=== PATIENT | female | born 1945 | race Caucasian/White ===

== ENCOUNTER 2020-04-01 09:59 | Inpatient (IN) ==
--- NOTE | 2019-08-21 13:01 | PAT Medication Instructions ---
Medication Instructions Date of Service August 21, 2019 Home Medications flecainide 50 mg PO Q12H glyburide 5 mg PO BID ibuprofen 200 mg PO TID PRN levothyroxine [Synthroid] 125 mcg PO QAM sitagliptin-metformin [Janumet XR] 1 tab PO QAM Continue as directed ibuprofen 200 mg PO TID PRN DO NOT take the morning of surgery glyburide 5 mg PO BID sitagliptin-metformin [Janumet XR] 1 tab PO QAM Take morning of surgery With a small sip of water, OTHERWISE NOTHING TO EAT OR DRINK AFTER MIDNIGHT: flecainide 50 mg PO Q12H levothyroxine [Synthroid] 125 mcg PO QAM Take evening before surgery flecainide 50 mg PO Q12H glyburide 5 mg PO BID Other Notes If you have any questions please call us at [phone] or [phone] or [phone] or [phone]
--- NOTE | 2020-03-05 12:12 | PAT Medication Instructions ---
Medication Instructions Date of Service March 05, 2020 Home Medications glyburide 2.5 mg PO BID levothyroxine [Synthroid] 125 mcg PO QAM sitagliptin-metformin [Janumet XR] 1 tab PO QAM amiodarone 200 mg PO BID carvedilol 12.5 mg PO BID furosemide 20 mg PO QAM rivaroxaban [Xarelto] 20 mg PO QAM sacubitril-valsartan [Entresto] 1 tab PO BID spironolactone 25 mg PO QAM ASK your prescriber and surgeon rivaroxaban [Xarelto] 20 mg PO QAM DO NOT take the morning of surgery glyburide 2.5 mg PO BID sitagliptin-metformin [Janumet XR] 1 tab PO QAM furosemide 20 mg PO QAM sacubitril-valsartan [Entresto] 1 tab PO BID spironolactone 25 mg PO QAM Take morning of surgery With a small sip of water, OTHERWISE NOTHING TO EAT OR DRINK AFTER MIDNIGHT: levothyroxine [Synthroid] 125 mcg PO QAM amiodarone 200 mg PO BID carvedilol 12.5 mg PO BID Take evening before surgery glyburide 2.5 mg PO BID amiodarone 200 mg PO BID carvedilol 12.5 mg PO BID sacubitril-valsartan [Entresto] 1 tab PO BID Other Notes If you have any questions please call us at [phone] or [phone] or [phone] or [phone]
--- NOTE | 2020-03-06 14:20 | Anesthesiology Consultation ---
Date of Service March 06, 2020 Assessment & Plan (1) Encounter for pre-operative examination: COVID Status: As of 03/06 assessment, patient denies travel to endemic area, known exposure/sick contacts, or symptoms of COVID19. Patient instructed that they and their household members must follow strict social distancing guidelines, wear a mask in public and avoid travel for 14 days prior to surgery. Preoperative COVID19 testing to be completed prior to surgery per surgeon's arrangements. Patient made aware to self-isolate as much as possible between COVID testing and surgery. Per cardiology (Dr. Vaz, [place]) 02/25/20 -- Moderate risk, LVEF 30%. Hold Xarelto x 3 days. "Has ICD L subclavian. Needs [employer] rep to turn off ICD during surgery." -- OR notified of need for [employer] rep. Chart Review Chart Review: Acceptable Risk for Surgery and Patient seen in Pre Admission Testing Teaching & Discussion Instructed NPO after midnight before surgery, except medications with 15 cc of water. Medication instructions provided according to the PAT guidelines. History Surgery Operation Date: 08/28/19 11:40 Proposed Procedures p Left Reverse Total Shoulder Arthroplasty - Santiago Hanks MD Operation Date: 04/01/20 12:20 Proposed Procedures p Left Reverse Total Shoulder Arthroplasty - Santiago Hanks MD Height/Weight Height: 5 ft 4 in Weight: 96.2 kg Allergies Allergy/AdvReac Type Severity Reaction Status Date / Time BAM Inhibitors AdvReac Intermediate Cough Verified 08/21/19 09:31 Medications Home Medications Medication Instructions Recorded Confirmed Last Taken glyburide 2.5 mg PO BID 08/21/19 02/28/20 Unknown levothyroxine [Synthroid] 125 mcg PO QAM 08/21/19 08/21/19 Unknown sitagliptin-metformin [Janumet XR] 1 tab PO QAM 08/21/19 08/21/19 Unknown amiodarone 200 mg PO BID 02/28/20 02/28/20 Unknown carvedilol 12.5 mg PO BID 02/28/20 02/28/20 Unknown furosemide 20 mg PO QAM 02/28/20 02/28/20 Unknown rivaroxaban [Xarelto] 20 mg PO QAM 02/28/20 02/28/20 Unknown sacubitril-valsartan [Entresto] 1 tab PO BID 02/28/20 02/28/20 Unknown spironolactone 25 mg PO QAM 02/28/20 02/28/20 Unknown Past Medical History Medical History (Updated 03/10/20 @ 09:32 by Mic Sequeira) Atrial fibrillation on Xarelto (follows w/ Dr. Vaz) Deep vein thrombosis ~1974 r/t control possibly. no problems since. 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 - Follows w/ Dr. Vaz (wore life vest x 5 mo prior to placement) H/O hand surgery right hand to repair deformity History of appendectomy with hysterectomy History of cardiac cath pre-op workup for shoulder surgery led to heart cath in early 2019; no stents placed but severely decreased EF found--> life vest x 5 months following cath, now s/p ICD placement 01/03/20 History of cholecystectomy History of colonoscopy History of dilatation and curettage History of total knee replacement bilateral S/P DENEEN-BSO Past Anesthesia History No Hx of Anesthesia Complications and No Family Hx of Anesthesia Complications History of PONV No Hx of PONV and No Hx of Motion Sickness Social History Smoking Status: Never smoker Do You Dip or Chew Tobacco: No Hx Alcohol Use: No Hx Substance Use: No substance use type: does not use Review of Systems Pt denies any recent chest pain, shortness of breath, palpitations, cough, fever, URI, or uncontrolled acid reflux. Physical Exam Vital Signs BP: 123/71 P: 56bpm SPO2: 94% RA T: 97.4 F R: 16 ENMT Mouth: + dentures and + edentulous Thyromental Distance: > or= 3.5 Finger Breadths Mallampati Class: II Neck normal visual inspection; neck extension not limited Respiratory normal respiratory effort Auscultation: lungs clear to auscultation bilaterally Cardiovascular Rate/Rhythm: regular rate and regular rhythm Heart Sounds: + murmur (I/) Extremities: no edema Testing Laboratory Results PT 15.4 Seconds (9.0-12.0) H 03/06/20 14:29 INR 1.5 (0.9-1.1) H 03/06/20 14:29 APTT 38.4 Seconds (21.0-31.0) H 03/06/20 14:29 Urine Color Yellow 03/06/20 14:29 Urine Appearance Clear (Clear) 03/06/20 14:29 Urine pH 7.5 (4.5-7.5) 03/06/20 14:29 Ur Specific [place] 1.015 (1.000-1.030) 03/06/20 14:29 Urine Protein Negative (Negative) 03/06/20 14:29 Urine Glucose (UA) Negative (Negative) 03/06/20 14:29 Urine Ketones Negative (Negative) 03/06/20 14:29 Urine Nitrite Negative (Negative) 03/06/20 14:29 Ur Leukocyte Esterase 1+ (Negative) H 03/06/20 14:29 Urine WBC (Auto) 1-5 /hpf (0-5) 03/06/20 14:29 Urine RBC (Auto) 0-4 /hpf (0-4) 03/06/20 14:29 U Hyaline Cast (Auto) 0 /lpf (0-5) 03/06/20 14:29 U Epithel Cells (Auto) >30 /lpf (0-5) H 03/06/20 14:29 Urine Bacteria (Auto) Negative (Negative) 03/06/20 14:29 Blood Type A Positive 03/06/20 14:29 Antibody Screen NEGATIVE 03/06/20 14:29 02/28/20 WBC: 9.7 H/H: 12.8/39.2 PLATELETS: 220 SODIUM: 141 POTASSIUM: 4.0 CHLORIDE: 101 CO2: 36 BUN: 16 CREATININE: 0.90 GLUCOSE: 151 A1C: 8.1% Electrocardiogram Date: 01/03/20 Sinus rhythm at 61 bpm with premature atrial complexes. Nonspecific intraventricular conduction block. Cannot rule out anterior infarct, age undetermined. T wave abnormality, consider inferior ischemia. *done at cardiology s/p ICD placement Chest X-Ray Date: 01/03/20 Status post pacemaker insertion with appropriate lead to position. No congestive changes, consolidating infiltrates or pleural effusions seen. Echocardiogram Date: 11/15/19 EF: 30% Severely decreased ejection fraction. There is top normal LV wall thickness. Normal right ventricular size with normal function. Mildly dilated left atrium. Normal right atrium. Trileaflet aortic valve. No aortic regurgitation. Mild to moderate mitral regurgitation. The mitral valve is thickened. There is trace tricuspid regurgitation. Normal PA pressure. Normal aorta. Physiologic pulmonary regurgitation. Cardiac Catheterization Date: 08/29/19 Mild nonocclusive coronary disease as described. Severely reduced LV systolic function with EF 20 to 25% and global hypokinesis. Low normal cardiac output/index. Mildly elevated wedge pressure, pulmonary pressure, RV end-diastolic pressure and right atrial pressure. Other Testing ICD Interrogation 01/03/20 Implant date: 01/03/20 Battery: N/A (was day of implantation) Mode: DDD
[2020-03-06 16:11] LABS: Appearance Urine Clear (Clear); Bacteria Urine Automated Negative (Negative); Bilirubin Urine Negative (Negative); Blood Urine Negative (Negative); Cast Urine Automated 0 /lpf (0-5); Color Urine Yellow; Epithelial Cell Urine Auto >30 /lpf (0-5); Glucose Urine UA Negative (Negative); Ketones Urine Negative (Negative); Leukocyte Esterase Urine 1+ (Negative); Nitrite Urine Negative (Negative); Protein Urine Negative (Negative); RBC Urine Automated 0-4 /hpf (0-4); Specific Gravity Urine 1.015 (1.000-1.030); Urobilinogen Urine Negative (Negative); pH Urine 7.5 (4.5-7.5)
[2020-03-06 16:22] LABS: INR 1.5 (0.9-1.1); Partial Thromboplastin Ratio 1.4; Partial Thromboplastin Time 38.4 Seconds (21.0-31.0); Prothrombin Time 15.4 Seconds (9.0-12.0)
--- NOTE | 2020-03-31 22:23 | History and Physical Report ---
DATE OF ADMISSION: 04/01/2020 CHIEF COMPLAINT: Left shoulder chronic weakness and pain. HISTORY OF PRESENT ILLNESS: This is a 74-year-old female patient of Dr. Hanks'jevon complaining of chronic left shoulder pain and weakness. She has failed conservative treatment and has been diagnosed with left shoulder rotator cuff arthropathy and has elected to proceed with a left reversed total shoulder arthroplasty. PAST MEDICAL HISTORY: Atrial fibrillation, Parkinson's disease, diabetes mellitus, hypothyroidism, rheumatoid arthritis, obesity. SOCIAL HISTORY: Nonsmoker and nondrinker. PAST SURGICAL HISTORY: Knee replacement and cholecystectomy. FAMILY HISTORY: Noncontributory. REVIEW OF SYSTEMS: Chronic left shoulder pain and weakness; otherwise, denies any shortness of breath, chest pain, nausea, vomiting or any other joint complaints. MEDICATIONS: 1. Janumet 50 mg/1000 one tablet daily. 2. Synthroid 125 mcg daily. 3. Lasix 20 mg daily. 4. Amiodarone 200 mg twice daily. 5. Coreg 12.5 mg twice daily. 6. Xarelto 20 mg daily. 7. Entresto 24 mg/26 mg 1 tablet twice daily. 8. Glyburide 2.5 mg 2 tablets twice daily. 9. Ibuprofen 200 mg as needed. 10. Synthroid 300 mcg daily. 11. Aldactone 25 mg 1/2 tablet daily. ALLERGIES: BAM INHIBITORS AND ADHESIVES. PHYSICAL EXAMINATION: GENERAL: Well-developed, well-nourished 74-year-old female in no acute distress. She is alert and oriented x3 and pleasant. HEENT: Normocephalic, atraumatic. Extraocular motions are intact. Pupils are equal and reactive to light. HEART: Irregular rhythm ____ rate consistent with AFib. LUNGS: Clear. ABDOMEN: Soft and nontender. Bowel sounds are present. EXTREMITIES: Left upper extremity on the left, 90 degrees of active range of motion. She has 3/5 strength. Neurologically and neurovascularly, she is intact in her left upper extremity. DIAGNOSES: Left shoulder rotator cuff arthropathy, atrial fibrillation, Parkinson's disease, diabetes, hypothyroidism, rheumatoid arthritis, obesity. PLAN: The patient was advised of her diagnosis. Indications, risks, benefits, postop course have all been reviewed. The patient wished to proceed with a left reversed total shoulder arthroplasty. Necessary consent forms, preoperative testing and clearances will be obtained.
[~2020-04-01 09:59] MED LIST: ACETAMINOPHEN 500 MG TAB PO SCH; CeleBREX 200 MG CAP PO SCH; DEXAMETHASONE SOD INJ 4 MG/ML VIAL ONE; EPINEPHrine INJ 1 MG/ML AMP ONE; FAMOTIDINE 20 MG TAB PO SCH; GABAPENTIN 300 MG CAP PO SCH; LR 15ML/HR IV SCH; METOCLOPRAMIDE HCL 10 MG TABLET PO SCH; ROPIVACAINE 0.5% 5 MG/ML 30 ML VIAL ONE; ceFAZolin 2000MG 2,000 MG/15 ML SYR IV SCH
[2020-04-01] MEDS ORDERED: LARYING-O-JET KIT (LTA) ONE (13:08)
[2020-04-01] MEDS ORDERED: PROPOFOL IV EMULSION 10 MG/ML 20 ML VIAL IV ONE (13:08)
[2020-04-01] MEDS ORDERED: DEXAMETHASONE SOD INJ 4 MG/ML VIAL ONE (13:08)
[2020-04-01] MEDS ORDERED: ONDANSETRON INJ 2 MG/ML 2 ML VIAL ONE (13:08)
[2020-04-01] MEDS ORDERED: SUCCINYLCHOLINE CHLORIDE 20 MG/ML 10 ML VIAL IV ONE (13:08)
[2020-04-01] MEDS ORDERED: fentaNYL citrate 100 MCG/2 ML VIAL ONE (13:08)
[2020-04-01] MEDS ORDERED: LIDOCAINE HCL 2% 2 ML VIAL/AMP(20MG/ML) INFIL ONE (13:08)
[2020-04-01] MEDS ORDERED: MIDAZOLAM HCL 1 MG/ML 2ML VIAL ONE (13:08)
[2020-04-01] MEDS ORDERED: PHENYLEPHRINE HCL 10 MG/ML VIAL ONE (13:08)
--- NOTE | 2020-04-01 13:50 | History & Physical Bridge Note ---
Date of Service April 01, 2020 History & Physical Bridge Note I have examined the patient, reviewed the History & Physical and in the interval since the performance of the History & Physical I have noted the following changes of clinical significance: no changes noted
[2020-04-01] MEDS ORDERED: BACITRACIN INJ 50,000 UNIT VIAL ONE (14:03)
[2020-04-01] MEDS ORDERED: NALOXONE HCL 0.4 MG/1 ML VIAL/CARP IV PRN ×2 (16:07→18:18)
[2020-04-01] MEDS ORDERED: ATROPINE SULFATE 0.1 MG/ML 10ML SYR IV PRN (16:07)
[2020-04-01] MEDS ORDERED: ONDANSETRON INJ 2 MG/ML 2 ML VIAL IV PRN ×2 (16:07→18:18)
[2020-04-01] MEDS ORDERED: fentaNYL citrate 100 MCG/2 ML VIAL IV PRN (16:07)
[2020-04-01] MEDS ORDERED: ePHEDrine sulfate 50 MG/ML AMP IV PRN (16:07)
[2020-04-01] MEDS ORDERED: FLUMAZENIL 0.1 MG/1 ML 10 ML VIAL IV PRN (16:07)
[2020-04-01] MEDS ORDERED: LABETALOL HCL IV 5 MG/ML 20ML IV PRN (16:07)
[2020-04-01] MEDS ORDERED: HYDROmorphone INJ 1 MG/ML SYRINGE IV PRN (16:07)
[2020-04-01] MEDS ORDERED: PROMETHAZINE HCL 12.5 MG in SODIUM CHLORIDE 0.9% 50 ML IV PRN (16:07)
--- NOTE | 2020-04-01 16:37 | Post Operative Brief Note ---
Immediate Post Op Note v1 Date of Surgery April 01, 2020 Pre & Post Diagnosis Operation Date: 08/28/19 11:40 <No data on this case meets the specified criteria> Operation Date: 04/01/20 12:05 Pre-Op Diagnosis: Left Shoulder rotator cuff arthropathy irreparable rotator cuff tear Post-Op Diagnosis: Left Shoulder rotator cuff arthropathy irreparable rotator cuff tear biceps rupture with scarring in bicipital groove I identified the patient and participated in the time-out.: Yes Procedure Operation Date: 08/28/19 11:40 <No data on this case meets the specified criteria> Operation Date: 04/01/20 12:05 Actual Procedures p Left Reverse Total Shoulder Arthroplasty, biceps tenodesis- Santiago Hanks MD Surgeon Santiago Hanks MD Supervisor Sewing Department [facility] Estimated Blood Loss 100 Findings Consistent with Post-Op Diagnosis Specimens Humeral head Drains Hemovac Drain Anesthesia Type General Regional Complications none Disposition Accompanied Patient To Recovery: No Overlapping Procedure I was immediately available: during the entire case.
--- NOTE | 2020-04-01 16:51 | Operative Report ---
Post Operative Report Pre & Post Diagnosis Operation Date: 08/28/19 11:40 <No data on this case meets the specified criteria> Operation Date: 04/01/20 12:05 Pre-Op Diagnosis: Left Shoulder rotator cuff arthropathy irreparable rotator cuff tear Post-Op Diagnosis: Left Shoulder rotator cuff arthropathy irreparable rotator cuff tear biceps rupture scarring in bicipital groove I identified the patient and participated in the time-out.: Yes Procedure Operation Date: 08/28/19 11:40 <No data on this case meets the specified criteria> Operation Date: 04/01/20 12:05 Actual Procedures p Left Reverse Total Shoulder Arthroplasty biceps tenodesis (Left) - Santiago Hanks MD Surgeon Santiago Hanks MD Power Equipment Mechanics Instructor [facility] Estimated Blood Loss 100 Findings Consistent with Post-Op Diagnosis Specimens Humeral head Drains 2 Hemovac Anesthesia Type General Regional Complications none Disposition Accompanied Patient To Recovery: No Disposition: Recovery Room Indications 72-year-old female with failed conservative management with guarded chronic left shoulder pain. X-rays and MRI demonstrates she has proximal migration of the humerus narrowed acromial interval mild to moderate AC joint osteoarthritis. There is inferior acromial spur causing subacromial impingement. MRI demonstrates large retracted rotator cuff tear with atrophy. Description of Procedure The patient was taken to the operating room and anesthetized under regional block and general anesthetic. The patient was positioned on the operating table in a 30 beachchair position with a towel roll under the medial border of the left scapula. The arm was draped free to be able to manipulate the shoulder as needed. The left upper extremity was prepped and draped in usual sterile fashion. Exam demonstrated crepitation with range of motion 70 degrees abduction, 30 degrees external rotation, 120 degrees forward elevation, moderate obesity of the the arm.. An anterior deltopectoral approach was performed. A longitudinal incision was made in the deltopectoral interval. The skin was incised sharply. Subcutaneous flaps were elevated off the fascia. The cephalic vein was dissected out and retracted lateral with the deltoid. The clavipectoral fascia was divided at the lateral margin of the conjoined tendon and extended up to the CA ligament. The following findings were noted patient large rotator cuff tear involving the entire supraspinatus and the majority the infraspinatus with some small amount of posterior infraspinatus and all of the teres minor intact. There is some scarred bursal tissue overlying the rotator cuff tear. The scarred bursal tissue was all excised.. The upper centimeter of the pectoralis was released for inferior exposure. The biceps tendon findings demonstrated that biceps was scarred down behind the bicipital groove there were some bicipital groove spurs surrounding it. The intra-articular portion of biceps had previously deteriorated or ruptured.. the biceps tendon was tenodesed in a lower position to to the pectoralis tendon with #2 FiberWire. The proximal biceps was resected as well as the bicipital groove bone spurs. The subscapularis tendon was taken down off the lesser tuberosity using a subperiosteal dissection. A #1 Vicryl traction suture was placed into the free end of the subscapularis tendon and capsule. The subscapular muscle fibers were split longitudinally at the level of the circumflex vessels. The c ircumflex vessels were identified and tied off with silk ties and divided laterally. A Kitner elevator was used to free up the inferior fibers of the subscapularis off of the capsule. The axillary nerve was identified with a tug test and protected with a blunt Juan José retractor between the nerve and the capsule. The subscapularis tendon was then taken down off of the lesser tuberosity subperiosteally and subperiosteal dissection was performed along the neck of the humerus as the arm is gradually externally rotated exposing the humeral head. The humeral head findings demonstrated mild to moderate osteoarthritic changes no significant osteophytes inferiorly but some laterally at the subscap tendon area. A [place] elevator was used to assist in releasing the capsule of the neck of the humerus. The capsule was divided with Reilly scissors down to the glenoid released off the anterior glenoid and the rotator interval was released to meet the capsular release and a 360 release of the subscapularis was accomplished. A Fukuda retractor was placed into the joint retracting the humeral head posterior. Glenoid findings demonstrated mild arthritic changes intact articular cartilage no deformity. The labrum was resected. The irreparable rotator cuff tear remnants were resected. An anterior-inferior and posterior inferior capsular release were performed with electrocautery and a [place] elevator on bone with the axillary nerve protected inferiorly by the retractor. Attention was then taken to the humeral preparation. The cutting guide was placed into the humeral head. It was posi tioned at 20 of retroversion. Oscillating saw was used to resect the humeral head giving the cut above the level of the posterior rotator cuff insertion site. The humerus was then prepared for the stem. I used the ascend flex stem from [employer]. The sizing broaches were used followed by trial broaches up to a size 5B long which had the appropriate fit and fill. The appropriate sized cut protector was placed. The humerus was then retracted posterior to the glenoid. The glenoid was sized for a 25 mm baseplate. The articular cartilage was curetted down so we can get the true position of the bony glenoid.. The guide for the baseplate was positioned in a 10 inferior tilt and the central drill hole was made. The reamer for the 25 mm aequalis baseplate was used. The central drill was widened for the peg. The 25 mm hydroxyapatite-coated Tornier aequalis baseplate was impacted into position. The base plate was transfixed with superior and inferior locking screws and anterior and posterior compression screws with stable fixation. The anterior screw was in some osteoporotic bone and had only fair fixation remainder of the screws had excellent fixation. The fan reamer was used for the 25 millimeter glenoid sphere. After irrigation the 25 mm standard glenoid sphere was impacted onto the baseplate and the screw was tightened. Attention was taken back to the humerus. The cut protector was removed and the high offset +0 humeral tray trial was assembled to the trial stem rotated appropriately to get bony coverage and then screwed in position. A trial reduction was performed. A +6,36 mm trial insert demonstrated good stability and no shuck. The trials were removed. 3 drill holes are made into the harder bone in the bicipital groove area and 3 #5 FiberWire sutures were placed transosseously. The canal was irrigated with antibiotic solution with bacitracin. The final component was assembled. The final component was 5B long PTC ascend flex stem assembled to the plus or high offset tray and 36+6 reversed polyethylene insert.. This was then impacted into the humerus with a tight press-fit. It was reduced to the glenoid sphere. Stability was verified. Sub scapularis was repaired with the #5 FiberWire sutures using Carlos-Tony suture technique. Lateral row soft tissue repair was performed with #2 FiberWire [id number] sutures. The pectoralis was repaired with #2 FiberWire [id number] sutures reinforcing the biceps tendon tenodesis. The arm was taken through a range of motion which demonstrated 140 degrees forward elevation, 45 degrees external rotation, 90 degrees abduction. The implant was stable through the range of motion tested. The wound was copiously irrigated. 2 Hemovac drains were placed. The deltopectoral interval was closed with [id number] #1 Vicryl sutures. The subcutaneous tissues were closed with 2- 0 Vicryl sutures. The skin was closed with antoinette. Sterile dressings were applied and a shoulder immobilizer. [facility] my physician medical assistant dermatology assisted in the procedure to the entire procedure including patient positioning arm positioning prepping and draping soft tissue retraction instrument managem ent suture management and performed the subcutaneous and skin closure and will participate in the postoperative care of the patient. I attest to the content of the Intraoperative Record and any orders documented therein. Any exceptions are noted below.
--- NOTE | 2020-04-01 17:42 | Anesthesiology Progress Note ---
Date of Service April 01, 2020 Anesthesia Post Procedure Vital Signs Vital Signs: Temp Pulse Pulse Resp BP Pulse Ox 04/01/20 17:30 36.3 C L 73 24 135/68 94 04/01/20 17:20 82 24 158/80 H 93 04/01/20 17:10 79 24 155/61 H 96 04/01/20 17:00 88 14 125/89 93 04/01/20 16:50 77 16 157/79 H 94 04/01/20 16:47 36.1 C L 81 17 158/84 H 93 04/01/20 10:31 36.6 C 66 20 179/94 H 95 Pain Intensity Left Shoulder: Pain Intensity: 0 Transfer of Care Handoff Completed per policy Notes Mental Status: alert / awake / arousable Patient Amnestic to Procedure: Yes Nausea / Vomiting: adequately controlled Pain: adequately controlled Airway Patency, RR, SpO2: stable & adequate BP & HR: stable & adequate Hydration State: stable & adequate Anesthetic Complications: no major complications apparent
--- NOTE | 2020-04-01 17:50 | XRay Report ---
XR shoulder LT min 2V routine CLINICAL HISTORY: Post shoulder surgery COMPARISON: None FINDINGS: Alignment of the left shoulder arthroplasty is anatomic. There is no periprosthetic fractu re or unexpected radiopaque foreign body. There are drains and skin antoinette. Left subclavian pacer/AI CD is in place. IMPRESSION: Expected findings following reverse total left shoulder arthroplasty. ACT 112: Negative or not required by law. Electronically signed by: Magan Thrasher M.D. 04/01/2020 5:49 PM
[2020-04-01] MEDS ORDERED: diphenhydrAMINE Capsule 25 MG CAP PO PRN (18:18)
[2020-04-01] MEDS ORDERED: bisacodyL 10 MG SUPP PR PRN (18:18)
[2020-04-01] MEDS ORDERED: MAGNESIUM HYDROXIDE SUSP 30 ML UDC PO PRN (18:18)
[2020-04-01] MEDS ORDERED: HYDROmorphone INJ 0.5 MG/0.5 ML SYR IV PRN (18:18)
[2020-04-01] MEDS ORDERED: PHARMACY GLYCEMIC MGMT CONSULT PRN (18:43)
[2020-04-01] MEDS: SODIUM CHLORIDE 0.9% 1000ML 1,000 ML IV SCH (19:12)
[2020-04-01] MEDS ORDERED: GLUCOSE 40% GEL 15 GM TUBE PO PRN (19:15)
[2020-04-01] MEDS ORDERED: GLUCAGON FOR INJ 1 MG VIAL SQ PRN (19:15)
[2020-04-01] MEDS ORDERED: CARBOHYDRATES FOR HYPOGLYCEMIA PO PRN (19:15)
[2020-04-01] MEDS ORDERED: DEXTROSE 50% 50 ML SYRINGE IV PRN (19:15)
[2020-04-01] MEDS ORDERED: GLUCOSE 10 TABS/TUBE PO PRN (19:15)
[2020-04-01] MEDS: INSULIN ASPART 100 UNITS/ML 3 ML PEN SC SCH (20:28)
[2020-04-01] MEDS: SENNA 8.6 MG TAB PO SCH (20:38)
[2020-04-01] MEDS: DOCUSATE SODIUM 100 MG CAP PO SCH (20:39)
[2020-04-01] MEDS: carvediloL 12.5 MG TAB PO SCH (20:39)
[2020-04-01] MEDS: AMIODARONE 200 MG TAB PO SCH (20:39)
[2020-04-01] MEDS: SACUBITRIL-VALSARTAN 24-26 MG TAB PO SCH (20:40)
[2020-04-01] MEDS ORDERED: INSULIN GLARGINE SOLOSTAR 100 UNITS/ML 3 ML PEN SC ONE (21:30)
[2020-04-01] MEDS: ACETAMINOPHEN 500 MG TAB PO SCH (21:32)
[2020-04-01] MEDS: ceFAZolin 2000MG 2,000 MG/15 ML SYR IV SCH (21:35)
[2020-04-02] MEDS: INSULIN ASPART 100 UNITS/ML 3 ML PEN SC SCH ×7 (00:28→21:18)
[2020-04-02] MEDS: SODIUM CHLORIDE 0.9% 1000ML 1,000 ML IV SCH (04:56)
[2020-04-02] MEDS: LEVOTHYROXINE SODIUM 125 MCG TABLET PO SCH (05:21)
[2020-04-02] MEDS: ACETAMINOPHEN 500 MG TAB PO SCH ×3 (05:21→21:19)
[2020-04-02] MEDS: ceFAZolin 2000MG 2,000 MG/15 ML SYR IV SCH (05:26)
[2020-04-02 06:38] LABS: Hematocrit (blood only) 34.8 % (37-47); Hemoglobin 11.4 g/dL (12.0-16.0); Immature Granulocytes # (auto) 0.03 K/uL (0.00-0.02); Immature Granulocytes % (auto) 0.3 %; Lymphocytes # (auto) 1.35 K/uL (1.2-3.4); Lymphocytes % (auto) 12.6 %; Mean Corpuscular Hemoglobin 30.2 pg (25-34); Mean Corpuscular Hgb Conc 32.8 g/dL (32-36); Mean Corpuscular Volume 92.1 fL (80-100); Mean Platelet Volume 11.1 fL (7.4-10.4); Monocytes # (auto) 0.48 K/uL (0.11-0.59); Monocytes % (auto) 4.5 %; Neutrophils # (auto) 8.86 K/uL (1.4-6.5); Neutrophils % (auto) 82.6 %; Platelet Count 211 K/uL (130-400); RDW Standard Deviation 43.6 fL (36.4-46.3); Red Blood Count 3.78 M/uL (4.2-5.4); White Blood Count 10.72 K/uL (4.8-10.8)
[2020-04-02 07:17] LABS: BUN Creatinine Ratio 15.7 (10-20); Calcium 8.7 mg/dl (8.5-10.1); Creatinine Clr Calc Pharmacy 65.4 ml/min; Est GFR (African American) 76.1; Est GFR (Non-African American) 65.6; Potassium 4.8 mmol/L (3.5-5.1)
[2020-04-02 07:58] LABS: Estimated Average Glucose 189 mg/dl; Hemoglobin A1C 8.2 % (4.5-5.6)
[2020-04-02] MEDS ORDERED: PNEUMOCOCCAL Polysaccharide Vaccine 25mcg/0.5mL vial/Syr IM ONE (08:15)
[2020-04-02] MEDS: AMIODARONE 200 MG TAB PO SCH ×2 (08:48→20:43)
[2020-04-02] MEDS: carvediloL 12.5 MG TAB PO SCH ×2 (08:49→20:43)
[2020-04-02] MEDS: SACUBITRIL-VALSARTAN 24-26 MG TAB PO SCH (08:49)
[2020-04-02] MEDS: RIVAROXABAN 20 MG TAB PO SCH (08:49)
[2020-04-02] MEDS: MULTIVITAMIN TAB PO SCH (08:49)
[2020-04-02] MEDS: DOCUSATE SODIUM 100 MG CAP PO SCH ×2 (08:49→20:42)
--- NOTE | 2020-04-02 08:51 | Orthopedic Progress Note ---
Date of Service April 02, 2020 Assessment & Plan (1) Secondary osteoarthritis of left shoulder due to rotator cuff arthropathy: Stop day 1 status post left reverse TSA PT/OT protocols. Nonweightbearing on the left upper extremity. Continues to have some residual effects from her nerve block that are slowly wearing off. Watch for now. DVT prophylaxis with rivaroxaban, SCDs DC planning-minimal therapy requirements initially at this time. Patient planning to be discharged home. Admission and Anticipated Discharge Date Admission Date: April 01, 2020 Subjective Postop day 1 Patient sitting up in her chair at the bedside. She has some continued numbness in her left hand this morning. No other complaints. Pain controlled. Denies shortness of breath, chest pain, lightheadedness. Physical Exam Physical Exam: Dressings are clean, dry, and intact. Hemovac functioning and drain 50 mL's from the previous shift. Patient has good flexion-extension of her left wrist. 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 She continues with some mild numbness across the dorsum of the hand into her fingers. Capillary refill is less than 2 seconds. Results & Data ([facility]) Vital Signs (Past 12 Hours) Vital Signs Temp Pulse Pulse Resp BP Pulse Ox 04/02/20 07:00 36.4 C L 52 L 16 100/64 94 04/02/20 04:08 36.4 C L 58 L 16 96/59 L 93 04/01/20 23:54 93 04/01/20 23:40 36.3 C L 77 20 120/72 88 L 04/01/20 21:04 36.8 C 73 18 122/72 91 Laboratory Results Laboratory Results WBC 10.72 K/uL (4.8-10.8) 04/02/20 06:24 RBC 3.78 M/uL (4.2-5.4) L 04/02/20 06:24 Hgb 11.4 g/dL (12.0-16.0) L 04/02/20 06:24 Hct 34.8 % (37-47) L 04/02/20 06:24 MCV 92.1 fL (80-100) 04/02/20 06:24 MCH 30.2 pg (25-34) 04/02/20 06:24 MCHC 32.8 g/dL (32-36) 04/02/20 06:24 RDW Std Deviation 43.6 fL (36.4-46.3) 04/02/20 06:24 RDW Coeff of Duc 13.0 % (11.5-14.5) 04/02/20 06:24 Plt Count 211 K/uL (130-400) 04/02/20 06:24 MPV 11.1 fL (7.4-10.4) H 04/02/20 06:24 Immature Gran % (Auto) 0.3 % 04/02/20 06:24 Neut % (Auto) 82.6 % 04/02/20 06:24 Lymph % (Auto) 12.6 % 04/02/20 06:24 [place] % (Auto) 4.5 % 04/02/20 06:24 Eos % (Auto) 0.0 % 04/02/20 06:24 Baso % (Auto) 0.0 % 04/02/20 06:24 Neut # (Auto) 8.86 K/uL (1.4-6.5) H 04/02/20 06:24 Lymph # (Auto) 1.35 K/uL (1.2-3.4) 04/02/20 06:24 [place] # (Auto) 0.48 K/uL (0.11-0.59) 04/02/20 06:24 Eos # (Auto) 0.00 K/uL (0-0.5) 04/02/20 06:24 Baso # (Auto) 0.00 K/uL (0-0.2) 04/02/20 06:24 Immature Gran # (Auto) 0.03 K/uL (0.00-0.02) H 04/02/20 06:24 PT 15.4 Seconds (9.0-12.0) H 03/06/20 14:29 INR 1.5 (0.9-1.1) H 03/06/20 14:29 APTT 38.4 Seconds (21.0-31.0) H 03/06/20 14:29 PTT Ratio 1.4 03/06/20 14:29 Sodium 138 mmol/L (136-145) 04/02/20 06:24 Potassium 4.8 mmol/L (3.5-5.1) 04/02/20 06:24 Chloride 102 mmol/L (98-107) 04/02/20 06:24 Carbon Dioxide 29 mmol/L (21-32) 04/02/20 06:24 Anion Gap 7.0 (3-11) 04/02/20 06:24 BUN 14 mg/dl (7-18) 04/02/20 06:24 Creatinine 0.88 mg/dl (0.6-1.2) 04/02/20 06:24 Est Cr Clr Drug Dosing 65.4 ml/min 04/02/20 06:24 Est GFR ( Amer) 76.1 04/02/20 06:24 Est GFR (Non-Af Amer) 65.6 04/02/20 06:24 BUN/Creatinine Ratio 15.7 (10-20) 04/02/20 06:24 Glucose 182 mg/dl (70-99) H 04/02/20 06:24 POC Glucose 192 mg/dl (70-99) H 04/02/20 08:07 Estimat Average Glucose 189 mg/dl 04/02/20 06:24 Hemoglobin A1c 8.2 % (4.5-5.6) H 04/02/20 06:24 Calcium 8.7 mg/dl (8.5-10.1) 04/02/20 06:24 Urine Color Yellow 03/06/20 14:29 Urine Appearance Clear (Clear) 03/06/20 14:29 Urine pH 7.5 (4.5-7.5) 03/06/20 14:29 Ur Specific [place] 1.015 (1.000-1.030) 03/06/20 14:29 Urine Protein Negative (Negative) 03/06/20 14:29 Urine Glucose (UA) Negative (Negative) 03/06/20 14:29 Urine Ketones Negative (Negative) 03/06/20 14:29 Urine Blood Negative (Negative) 03/06/20 14:29 Urine Nitrite Negative (Negative) 03/06/20 14:29 Urine Bilirubin Negative (Negative) 03/06/20 14:29 Urine Urobilinogen Negative (Negative) 03/06/20 14:29 Ur Leukocyte Esterase 1+ (Negative) H 03/06/20 14:29 Urine WBC (Auto) 1-5 /hpf (0-5) 03/06/20 14:29 Urine RBC (Auto) 0-4 /hpf (0-4) 03/06/20 14:29 U Hyaline Cast (Auto) 0 /lpf (0-5) 03/06/20 14:29 U Epithel Cells (Auto) >30 /lpf (0-5) H 03/06/20 14:29 Urine Bacteria (Auto) Negative (Negative) 03/06/20 14:29 Blood Type A Positive 03/06/20 14:29 Antibody Screen NEGATIVE 03/06/20 14:29
[2020-04-02] MEDS ORDERED: SPIRONOLACTONE 25 MG TAB PO SCH (09:00)
[2020-04-02] MEDS ORDERED: FUROSEMIDE 20 MG TAB PO SCH (09:00)
[2020-04-02] MEDS ORDERED: INSULIN GLARGINE SOLOSTAR 100 UNITS/ML 3 ML PEN SC SCH (09:00)
[2020-04-02] MEDS ORDERED: SITAGLIPTIN METFORMIN PO SCH (09:00)
--- NOTE | 2020-04-02 09:06 | Pharmacy Report ---
Glycemic Control Consultation - Date of Service April 02, 2020 - Scope Scope: Glycemic Pharmacist consulted for glycemic control and to write orders per [facility] inpatient glycemic control protocol. - Objective Weight: 97.159 kg Accuchecks BSG (last 24hrs): 04/01/20 04/01/20 04/01/20 10:23 16:51 18:38 Glucose POC Glucose 213 H 209 H 243 H 04/01/20 04/01/20 04/01/20 20:53 23:39 23:42 Glucose POC Glucose 406 H* 303 H* 320 H* 04/02/20 04/02/20 04/02/20 04:06 06:24 08:07 Glucose 182 H POC Glucose 243 H 192 H Laboratory Data (last 24hrs): 04/02/20 06:24 Potassium 4.8 Carbon Dioxide 29 Anion Gap 7.0 Creatinine 0.88 Est Cr Clr Drug Dosing 65.4 HbA1c: Hemoglobin A1c 8.2 % (4.5-5.6) H 04/02/20 06:24 - Recent Pertinent Medications Outpatient Anti-diabetic Regimen: * Janumet XR 1 tab qAM, glyburide 2.5 bid * A1c = 8.2 % 04/02/20 Risk Factors for Insulin Resistance: * Recent Surgery: pod1 * Diet: t2dm - Assessment & Plan Assessment & Plan: ASSESSMENT: * Patient now POD 1 of L shoulder arthroplasty. Pharmacy consulted for glycemic management postop. Patient managed only on oral agents at home * Received total of 41 units of insulin yesterday, of which 20 were basal insulin * Fasting BSG 182 mg/dL - will continue with 10 of Lantus this AM, and have scale for HS for basal * BSGs trending up overnight - CF/CR tightened / continued same for this morning, tightened at lunch PLAN FOR INPATIENT GLYCEMIC CONTROL: * Holding outpatient oral diabetes medications * Basal insulin * Lantus 10 Qam * Lantus HS per scale 15-20 units based upon BSG value / see eMAR for more details * Bolus insulin * NovoLog per scale ACHS or Q6hrs while NPO * Goal Range: Low 110 mg/dL - High 140 mg/dL * Correction Factor: 15 mg/dL/unit * Nutritional / Prandial insulin per carb ratio of 1 unit per 4 grams CHO consumed * Please note that the plan above was derived based on current level of insulin resistance and hospital stress. These recommendations are appropriate for inpatient admission only. Plan of care upon discharge will need to be reassessed to avoid potential outpatient hypo/hyperglycemia. Thank you.
[2020-04-02] MEDS: oxyCODONE HCL IR 5 MG TAB (IMMEDIATE RELEASE) PO PRN ×2 (16:38→22:30)
--- NOTE | 2020-04-02 18:22 | Consultation ---
Date of Consultation April 02, 2020 Assessment & Plan (1) Secondary osteoarthritis of left shoulder due to rotator cuff arthropathy: s/p TSA 04/02 Pain control, dvt proph per primary Monitor for acute blood loss CBC am (2) Nonischemic dilated cardiomyopathy: Last echo 10/2019 - EF 30% Patient's blood pressure running low normal, will place entresto on hold for this evening. Will hold off on giving further fluids given low EF and lack of symptoms. Continue Coreg Will place spironolactone and lasix on hold until morning labs are back and blood pressure assessed in the morning Recheck prp am (3) Hypothyroidism: Continue synthroid (4) Essential (primary) hypertension: As above (5) Diabetes mellitus, type 2: Pharmacy glycemic consult BSG ac & HS A1c 8.2% (6) Atrial fibrillation: Continue Xeralto per primary Supervising Physician Co-Signing Physician Notes Patient seen and examined with Esme ARCE. I agree with her exam findings, review of systems, assessment and plan. I personally reviewed the lab work and imaging as well. patient doing well after surgery, no pain in left shoulder due to nerve block breathing well, no distress reviewed medications, medical history - DM: will hold oral regimen, use Lantus and Novolog, monitor for hypoglycemia - Cardiomyopathy, h/o defibrillator continue Entresto, Coreg, Lasix, spironolactone check BMP in the morning to assess renal function and electrolytes will follow up in AM, likely sign off History of Present Illness Ms. Schroeder is doing well, no complaints. No pain. at bedside Pmhx: DMII, hypothyroid, def/pacer, tremor social: lives with , retired, never smoker, no alcohol family: non contributory Attending Physician: Santiago Hanks MD Allergies Allergy/AdvReac Type Severity Reaction Status Date / Time BAM Inhibitors AdvReac Intermediate Cough Verified 04/01/20 10:24 Home Medications Home Medications Medication Instructions Recorded Confirmed Type glyburide 2.5 mg PO BID 08/21/19 04/01/20 History levothyroxine [Synthroid] 125 mcg PO QAM 08/21/19 04/01/20 History sitagliptin-metformin [Janumet XR] 1 tab PO QAM 08/21/19 04/01/20 History amiodarone 200 mg PO BID 02/28/20 04/01/20 History carvedilol 12.5 mg PO BID 02/28/20 04/01/20 History furosemide 20 mg PO QAM 02/28/20 04/01/20 History rivaroxaban [Xarelto] 20 mg PO QAM 02/28/20 04/01/20 History sacubitril-valsartan [Entresto] 1 tab PO BID 02/28/20 04/01/20 History spironolactone 25 mg PO QAM 02/28/20 04/01/20 History Patient History Medical History (Updated 04/02/20 @ 18:29 by YAZMIN Castaneda) Atrial fibrillation on Xarelto (follows w/ Dr. Vaz) Deep vein thrombosis ~1974 r/t control possibly. no problems since. Diabetes mellitus, type 2 NIDDM Essential (primary) hypertension Hypothyroidism Nonischemic dilated cardiomyopathy s/p dual chamber ICD 01/03/20 Osteoarthritis Poor historian Tremor "pre parkinson" per pt Surgical History Cardiac defibrillator in place placed 3 weeks ago -- brand? - Follows w/ Dr. Vaz (wore life vest x 5 mo prior to placement) H/O hand surgery right hand to repair deformity History of appendectomy with hysterectomy History of cardiac cath pre-op workup for shoulder surgery led to heart cath in early 2019; no stents placed but severely decreased EF found--> life vest x 5 months following cath, now s/p ICD placement 01/03/20 History of cholecystectomy History of colonoscopy History of dilatation and curettage History of total knee replacement bilateral S/P DENEEN-BSO Family History Father Family history of diabetes mellitus Daughter Family history of diabetes mellitus Other No family history of adverse response to anesthesia Social History Smoking Status: Never smoker Second Hand Exposure: Yes (hx); Do You Dip or Chew Tobacco: No; Tobacco Cessation Education Requested by Patient: No Hx Alcohol Use: No Hx Substance Use: No Preferred Language: Amharic Communication Ability: Effective Asphalt Tamper Required: No Beliefs That Will Affect Care: None marital status: Current Living Situation: Spouse Other Information That Helps Us Care for You: No Feels Safe at Home: Yes Safety Concerns: Feels Safe At This Time Review of Systems Constitutional: no fever, no sweats and no body aches Respiratory: no cough, no dyspnea and no wheezing Cardiovascular: no chest pain, no dyspnea and no palpitations Gastrointestinal: no nausea, no vomiting and no diarrhea/loose stools Genitourinary: no dysuria and no urinary hesitancy Musculoskeletal: no back pain and no joint pain Integumentary: no rash Physical Exam Physical Exam: General: no distress Eyes: normal inspection, PERLL Respiratory: chest non tender, clear to auscultation, normal breath sounds, no respiratory distress, no accessory muscle use Cardiac: regular rate and rhythm, no rub or gallop, no murmur, no edema, no jvd GI/: active bowel sounds, no abd pain or tenderness, soft, non distended Extremities: normal range of motion, normal strength, non tender, left hand warm with strong grasp Neuro/Psych: alert and oriented x 3, normal mood and affect Skin: normal color, dry Results & Data ([facility]) Vital Signs (Past 12 Hours) Vital Signs Temp Pulse Pulse Resp BP Pulse Ox 04/02/20 15:14 36.6 C 62 18 95/55 L 90 04/02/20 11:52 36.5 C 57 L 16 103/60 91 04/02/20 07:00 36.4 C L 52 L 16 100/64 94 PG Care Time/CCT Total # of Minutes Spent Total Time Spent with Patient: Total time spent is greater than 50% in coordination of care (as documented) at patient's floor/unit and/or counseling patient: Coding Level of Care Code 29122 Inpt Consult Level 4 Diagnoses Secondary osteoarthritis of left shoulder due to rotator cuff arthropathy M1 9.212 Nonischemic dilated cardiomyopathy I42.0 Hypothyroidism E03.9 Essential (primary) hypertension I10 Diabetes mellitus, type 2 E11.9 Atrial fibrillation I48.91
[2020-04-02] MEDS: SENNA 8.6 MG TAB PO SCH (20:43)
[2020-04-02] MEDS: INSULIN GLARGINE SOLOSTAR 100 UNITS/ML 3 ML PEN SC SCH (21:18)
[2020-04-03] MEDS: oxyCODONE HCL IR 5 MG TAB (IMMEDIATE RELEASE) PO PRN ×2 (02:17→09:15)
[2020-04-03 06:10] LABS: Basophils # (auto) 0.02 K/uL (0-0.2); Basophils % (auto) 0.1 %; Eosinophils # (auto) 0.08 K/uL (0-0.5); Eosinophils % (auto) 0.6 %; Hematocrit (blood only) 33.1 % (37-47); Hemoglobin 10.9 g/dL (12.0-16.0); Immature Granulocytes # (auto) 0.03 K/uL (0.00-0.02); Immature Granulocytes % (auto) 0.2 %; Lymphocytes # (auto) 3.17 K/uL (1.2-3.4); Lymphocytes % (auto) 23.1 %; Mean Corpuscular Hemoglobin 30.5 pg (25-34); Mean Corpuscular Hgb Conc 32.9 g/dL (32-36); Mean Corpuscular Volume 92.7 fL (80-100); Mean Platelet Volume 11.1 fL (7.4-10.4); Monocytes # (auto) 1.09 K/uL (0.11-0.59); Monocytes % (auto) 7.9 %; Neutrophils # (auto) 9.33 K/uL (1.4-6.5); Neutrophils % (auto) 68.1 %; Platelet Count 205 K/uL (130-400); RDW Coefficient of Variation 13.2 % (11.5-14.5); RDW Standard Deviation 45.1 fL (36.4-46.3); Red Blood Count 3.57 M/uL (4.2-5.4); White Blood Count 13.72 K/uL (4.8-10.8)
[2020-04-03] MEDS: ACETAMINOPHEN 500 MG TAB PO SCH (06:10)
[2020-04-03] MEDS: LEVOTHYROXINE SODIUM 125 MCG TABLET PO SCH (06:11)
[2020-04-03 06:37] VITALS: TEMP 97.7; O2SAT 94
[2020-04-03 06:48] LABS: BUN Creatinine Ratio 20.7 (10-20); Calcium 8.4 mg/dl (8.5-10.1); Creatinine Clr Calc Pharmacy 59.9 ml/min; Est GFR (African American) 68.5; Est GFR (Non-African American) 59.1; Potassium 3.8 mmol/L (3.5-5.1)
--- NOTE | 2020-04-03 07:22 | Orthopedic Progress Note ---
Date of Service April 03, 2020 Assessment & Plan (1) Secondary osteoarthritis of left shoulder due to rotator cuff arthropathy: Stop day 2 status post left reverse TSA PT/OT protocols. Nonweightbearing on the left upper extremity. DVT prophylaxis with rivaroxaban, SCDs DC planning-minimal therapy requirements initially at this time. Patient planning to be discharged home today. Admission and Anticipated Discharge Date Admission Date: April 01, 2020 Subjective POD #2, Doing well. Pain controlled well. Denies SOB/ CP/ N/V, no diziness. Physical Exam Physical Exam: Left shoulder dressings c/d/i,no drainage. Fingers mobile. N/V+ Sling in tact. A&Ox3. Results & Data ([facility]) Vital Signs (Past 12 Hours) Vital Signs Temp Pulse Pulse Resp BP Pulse Ox 04/03/20 06:36 36.5 C 50 L 14 110/69 94 04/02/20 23:35 36.6 C 61 14 147/56 H 92 04/02/20 20:41 65 04/02/20 20:40 57 L 116/67
[2020-04-03] MEDS: INSULIN ASPART 100 UNITS/ML 3 ML PEN SC SCH (07:30)
[2020-04-03] MEDS: DOCUSATE SODIUM 100 MG CAP PO SCH (07:34)
[2020-04-03] MEDS: MULTIVITAMIN TAB PO SCH (07:34)
[2020-04-03] MEDS: INSULIN GLARGINE SOLOSTAR 100 UNITS/ML 3 ML PEN SC SCH (07:36)
[2020-04-03] MEDS: RIVAROXABAN 20 MG TAB PO SCH (07:38)
--- NOTE | 2020-04-03 08:25 | Pharmacy Report ---
Pharmacy Glycemic Short Note 2 - Date of Service April 03, 2020 - Glycemic Short BSG Results (Last 24 hours): 04/02/20 04/02/20 04/02/20 12:10 17:00 20:58 Glucose POC Glucose 221 H 173 H 152 H 04/03/20 04/03/20 05:51 06:32 Glucose 153 H POC Glucose 174 H ASSESSMENT: 04/03: * Patient received total of 68 units of insulin yesterday, of which 25 were basal insulin * Fasting BSG 174 mg/dL - above goal - will continue to titrate basal insulin * BSGs yesterday improving with tightened CR / will follow, may need to loosen once more basal on board PLAN FOR INPATIENT GLYCEMIC CONTROL: * Holding outpatient oral diabetes medications * Basal insulin * Lantus 15-20 units BID based upon BSG - see emar for more details * Bolus insulin * NovoLog per scale ACHS or Q6hrs while NPO * Goal Range: Low 110 mg/dL - High 140 mg/dL * Correction Factor: 15 mg/dL/unit * Nutritional / Prandial insulin per carb ratio of 1 unit per 4 grams CHO consumed PLAN FOR DISCHARGE: * A1c on admission 8.2% - goal <8% reasonable * Would recommend continuation of home oral diabetic agents on discharge. Would encourage patient to seek follow up if BSGs consistently >200 at home * DM educator met with patient, recommend patient obtain new glucose meter as reported BSGs by patient at home not correlating with A1c value * Encourage continued self monitoring of BSGs at home 3-4x/day * Please note that the plan above was derived based on current level of insulin resistance and hospital stress. These recommendations are appropriate for inpatient admission only. Plan of care upon discharge will need to be reassessed to avoid potential outpatient hypo/hyperglycemia. Thank you.
[2020-04-03 09:13] VITALS: BP 124/70; PULSE 52
[2020-04-03] MEDS: AMIODARONE 200 MG TAB PO SCH (09:16)
[2020-04-03] MEDS: carvediloL 12.5 MG TAB PO SCH (09:16)
--- NOTE | 2020-04-14 11:19 | Discharge Summary (DS) ---
HISTORY OF PRESENT ILLNESS: This is a 74-year-old female patient of Dr. Hanks'jevon complaining of chronic left shoulder pain and weakness. She failed conservative treatment and was diagnosed with rotator cuff arthropathy and elected to proceed with a left reversed total shoulder arthroplasty. PAST MEDICAL HISTORY: AFib, Parkinson's disease, diabetes mellitus, hypothyroidism, rheumatoid arthritis and obesity. POSTOPERATIVE COURSE: The patient underwent a left reversed total shoulder arthroplasty and biceps tenodesis on 04/01/2020. She was followed closely with medical consultation, pain control, limited physical therapy and she did resume her Xarelto for her cardiomyopathy. Postoperatively, she did very well and was discharged home on postoperative day #2. PHYSICAL EXAMINATION: Left shoulder incision was clean, dry and intact. There was no redness or drainage. Skin edges were approximated well. Sarkis were intact. Elbow, wrist and hand motion was intact. Sling was intact. Neurologically and neurovascularly, she was intact in her left upper extremity. DIAGNOSES: Status post left reversed total shoulder arthroplasty and biceps tenodesis with a history of atrial fibrillation, Parkinson's disease, diabetes mellitus, hypothyroidism, rheumatoid arthritis and obesity. PLAN: The patient was discharged home with home exercises only on postoperative day #2. She will continue her preadmission medications including her Xarelto for DVT prophylaxis as well as the addition of pain medications as needed. The patient will follow up as scheduled as an outpatient.
== END 2020-04-03 11:12 | disposition home or self-care (01) | DRG 483 ==
LOC: ASU 09:59 → 3E 16:54